=== PATIENT | male | born 1970 | race Caucasian/White ===

== ENCOUNTER 2022-09-16 06:52 | Day surgery (SDC) | payer BC ==
[2022-09-16] MEDS ORDERED: Lactated Ringers 1,000 ML IV SCH (07:00)
[2022-09-16] MEDS ORDERED: fentaNYL 100 MCG/2 ML SDV ONE (07:51)
[2022-09-16] MEDS ORDERED: Propofol 200 MG/20 ML SDV ONE ×2 (07:51→09:08)
== END 2022-09-16 10:45 | disposition home or self-care (01) ==
LOC: VM.SDS 06:52
PROVIDERS: ATTEND Student in an Organized Health Care Education/Training Program
DX: D12.2 Benign neoplasm of ascending colon (principal); K59.00 Constipation, unspecified; G47.30 Sleep apnea, unspecified; D50.9 Iron deficiency anemia, unspecified; E79.0 Hyperuricemia without signs of inflammatory arthritis and tophaceous disease; K21.9 Gastro-esophageal reflux disease without esophagitis; I10 Essential (primary) hypertension; E78.5 Hyperlipidemia, unspecified; E66.9 Obesity, unspecified; E11.9 Type 2 diabetes mellitus without complications; Z90.49 Acquired absence of other specified parts of digestive tract; Z79.899 Other long term (current) drug therapy; Z79.84 Long term (current) use of oral hypoglycemic drugs; Z79.82 Long term (current) use of aspirin
CPT/HCPCS: 00811; 82947; J2704; J3010